=== PATIENT | female | born 1990 | race Caucasian/White ===

== ENCOUNTER 2019-04-10 07:50 | Emergency (ER) | payer MEDICAID ==
[~2019-04-10] VITALS: Ht 160 cm; Wt 54.5 kg
[~2019-04-10 07:50] MED LIST: NO HOME MEDS
[2019-04-10] MEDS ORDERED: haloperidol lactate 5mg/ml inj IM ONE (08:05)
[2019-04-10] MEDS ORDERED: diphenhydrAMINE 50 mg/ml inj IV ONE (08:05)
[2019-04-10] MEDS ORDERED: normal saline 1000ML IV soln IVB ONE (08:05)
[2019-04-10 08:40] LABS: BASOPHILS % (AUTO) 0.2 % (0-1); EOSINOPHILS % (AUTO) 0.1 % (0-6); HEMATOCRIT 39.8 % (35.0-45.0); HEMOGLOBIN 13.3 g/dl (12.0-16.0); LYMPHOCYTES # (AUTO) 1.1 X10'3 (1.1-4.8); LYMPHOCYTES % (AUTO) 8.6 % (21-51); MEAN CORPUSCULAR HEMOGLOBIN 30.3 PG (27.0-31.0); MEAN CORPUSCULAR HGB CONC 33.3 g/dL (33.0-36.5); MEAN CORPUSCULAR VOLUME 90.9 FL (78-98); MEAN PLATELET VOLUME 8.8 FL (7.4-10.4); MONOCYTES # (AUTO) 0.8 X10'3 (0-0.9); MONOCYTES % (AUTO) 6.3 % (2-12); NEUTROPHILS # (AUTO) 10.8 X10'3 (1.8-7.7); NEUTROPHILS % (AUTO) 84.8 % (42-75); PLATELET COUNT 204 X10'3 (140-440); RED BLOOD COUNT 4.38 X10'6 (4.20-5.60); RED CELL DISTRIBUTION WIDTH 14.1 % (11.5-14.5); WHITE BLOOD COUNT 12.7 X10'3 (4.5-11.0)
[2019-04-10 09:09] LABS: ALANINE AMINOTRANSFERASE 25 U/L (12-78); ALKALINE PHOSPHATASE 76 IU/L (46-116); ANION GAP 14 (8-16); ASPARTATE AMINO TRANSFERASE 29 U/L (10-37); BILIRUBIN,TOTAL 0.6 MG/DL (0.1-1.0); BLOOD UREA NITROGEN 16 MG/DL (7-18); BUN/CREATININE RATIO 16.2 (6.6-38.0); CALCIUM 9.2 MG/DL (8.5-10.1); CHLORIDE 103 MMOL/L (99-107); CREATININE 0.99 MG/DL (0.40-0.90); GLUCOSE 104 MG/DL (70-104); LIPASE 103 U/L (73-393); SODIUM 140 MMOL/L (135-145); TOTAL CARBON DIOXIDE 22.8 MMOL/L (24-32); eGFR 66 ML/MIN
[2019-04-10] MEDS ORDERED: potassium Cl 10 mEq/100mL bag IV ONE (09:25)
[2019-04-10] MEDS ORDERED: potassium Cl 20 mEq SR tablet PO ONE (09:25)
--- NOTE | 2019-04-10 09:33 | NUR ---
PT WAS SLEEPING, IV FLUID BOLUS COMPLETE, PT AMBULATORY TO THE BATHROOM WITH STEADY GAIT TO PROVIDE URINE SAMPLE PER ORDERS, WILL UPDATE VS WHEN PT RETURNS TO ROOM.
[2019-04-10 09:58] LABS: URINE HCG NEGATIVE (NEG)
--- NOTE | 2019-04-10 10:18 | NUR ---
DR ARCHER INFORMED PT NAUSEA HAS RETURNED, ORDERS TO FOLLOW.
[2019-04-10] MEDS ORDERED: proCHLORperazine 10 MG/2 ml inj IV ONE (10:20)
[2019-04-10] MEDS ORDERED: METO-292 PO (10:42)
[2019-04-10 11:25] VITALS: BP 101/53
== END 2019-04-10 11:28 | disposition home or self-care (01) ==
LOC: ER 07:50
DX: R11.2 Nausea with vomiting, unspecified (principal); E87.6 Hypokalemia; R19.7 Diarrhea, unspecified; R10.10 Upper abdominal pain, unspecified; F12.90 Cannabis use, unspecified, uncomplicated; Z79.899 Other long term (current) drug therapy
CPT/HCPCS: 36415; 80053; 81025; 83690; 85025; 96361; 96365; 96372; 96375; 99283; J0780; J1200; J1630; J3480; J7030